=== PATIENT | female | born 1965 | race Hispanic/Latino ===

== ENCOUNTER 2017-12-08 13:21 | Inpatient (IN) | payer BC ==
[~2017-12-08] VITALS: Ht 165.1 cm; Wt 74.8 kg
--- OUTSIDE RECORDS SUMMARY | 2017-12-08 13:23 | XMS REPORT | Summary of Care ---
Author Author Olivia Huang M.A. Unknown Address Unknown Phone Unavailable Care Team Providers Care Fiscal Services Manager Name Role Phone WILSON CARTER M.D. Unavailable Unavailable KELECHI YOUSSEF, ABHISHEK Timmons Unavailable Unavailable Unavailable Unavailable Functional Status Name Dates Details Functional status health issues are not documented Status: Name Dates Details Cognitive status health issues are not documented Status: Problems Name Dates Details Joint pain of lower extremity (719.48, M25.50) Status: Active Colon cancer screening (V76.51, Z12.11) Status: Active Abdominal pain (789.00, R10.9) Status: Active Abnormal LFTs (790.6, R94.5) Status: Active Bilateral knee pain (719.46, M25.561) Status: Active Primary localized osteoarthritis of left knee (715.16, M17.12) Status: Active Limb pain (729.5, M79.609) Status: Active GERD (gastroesophageal reflux disease) (530.81, K21.9) Status: Active Status post total knee replacement using cement, right (V43.65, Z96.651) Status: Active Aftercare following right knee joint replacement surgery (V54.81, Z47.1) Status: Active Primary localized osteoarthritis of right knee (715.16, M17.11) Status: Active Medications Name Dates Details Not Currently on Medications R.N. Active Dicyclomine HCl - 10 MG Oral Capsule TAKE 1 CAPSULE 4 TIMES DAILY * Refills: 0 R.N. Active OrthoVisc 30 MG/2ML Intra-articular Solution Prefilled Syringe INJECT ONE PRE-FILLED SYRINGE INTRA-ARTICULARLY INTO RIGHT KNEE WEEKLY FOR THREE WEEKS. * Quantity: 3 Refills: 1 WILSON CARTER M.D. * Start : 24-Jan-2017 Active 2 ML Syringe Lidocaine 5 % External Ointment APPLY TO AFFECTED AREAS DIRECTED. * Quantity: 240 Refills: 0 R.N. * Start : 03-Sep-2017 Active Celecoxib 200 MG Oral Capsule TAKE 1 CAPSULE BY MOUTH TWICE DAILY THE DAY BEFORE SURGERY, AND 1 CAPSULE THE MORNING OF SURGERY * Quantity: 3 Refills: 0 MENDOZA-VALERIE Franklin.Baldo., WILSON * Start : 10-Oct-2017 Active Promethazine HCl - 25 MG Oral Tablet TAKE 1 TABLET EVERY 4 TO 6 HOURS NEEDED FOR NAUSEA. * Quantity: 20 Refills: 0 MENDOZA-VALERIE M.D., WILSON * Start : 21-Oct-2017 Active Manhattan 10-325 MG Oral Tablet One every 3 hrs as needed for pain. * Quantity: 80 Refills: 0 MENDOZA-VALERIE M.Baldo., WILSON * Start : 03-Nov-2017 Active Allergies and Adverse Reactions Name Dates Details No Known Drug Allergies (Allergy) Status: Active Past Medical History Name Dates Details History of arthritis (V13.4, Z87.39) Status: Resolved History of back pain (V13.59, Z87.39) Status: Resolved History of Gallbladder disorder (575.9, K82.9) Status: Resolved History of kidney stones (V13.01, Z87.442) Status: Resolved Procedures Procedure Dates Details History of Gastrectomy Sleeve Laparoscopic Completed History of knee replacement Completed Immunization Name Dates Details Immunizations not documented Family History Name Dates Details Family history of diabetes mellitus (V18.0, Z83.3) Status: Active Name Dates Details Family history of Ovarian cancer (183.0, C56.9) Status: Active Name Dates Details Family history of Parkinson disease, symptomatic (332.0, G20) Status: Active Name Dates Details Family history of hypertension (V17.49, Z82.49) Status: Active Family history of cardiac disorder (V17.49, Z82.49) Status: Active Social History Name Dates Details - Status: Name Dates Details Former smoker Vital Signs Date Test Result Details [id number]-[id number]:52 BP Systolic 168 mm[Hg] Status: Comments: Location: RUE; Position: Sitting BP Diastolic 99 mm[Hg] Status: Comments: Location: RUE; Position: Sitting Height 65 in Status: Heart Rate 67 /min Status: Comments: Location: R Radial; Results Date Description Value Details [id number]-[id number] [U] XRAY KNEE 3 VWS RIGHT 32633 XR KNEE 3 VWS RIGHT Images acquired, not reported on this accession number. Plan of Care Name Dates Details Planned Observations Planned Goals not documented Planned Encounters Appointment; WILSON CARTER M.D. On: 08-Dec-2017 16:15 Instructions Name Dates Details Instructions not documented Encounters Appointment; KLARISSA SUN M.D. Encounter Diagnosis: Problem not documented On: 22-Apr-2016 13:00 Appointment; KLARISSA SUN M.D. Encounter Diagnosis: Problem not documented On: 24-May-2016 9:00 Appointment; KLARISSA SUN M.D. Encounter Diagnosis: Problem not documented On: 24-Jun-2016 9:15 Appointment; KLARISSA SUN M.D. Encounter Diagnosis: Problem not documented On: 22-Aug-2016 14:30 Appointment; ROBI GUTIERREZ M.D. Encounter Diagnosis: Problem not documented On: 29-Aug-2016 10:00 Appointment; WILSON CARTER M.D. Encounter Diagnosis: Problem not documented On: 20-Jan-2017 13:45 Appointment; STEVEN BRAGG NP Encounter Diagnosis: Problem not documented On: 05-Feb-2017 8:00 Appointment; STEVEN BRAGG NP Encounter Diagnosis: Problem not documented On: 12-Feb-2017 16:00 Appointment; STEVEN BRAGG NP Encounter Diagnosis: Problem not documented On: 19-Feb-2017 15:30 Appointment; WILSON CARTER M.D. Encounter Diagnosis: Problem not documented On: 15-Aug-2017 7:30 Appointment; INDERJIT GOULD M.D. Encounter Diagnosis: Problem not documented On: 08-Oct-2017 13:00 Appointment; WILSON CARTER M.D. Encounter Diagnosis: Problem not documented On: 16-Oct-2017 7:00 Appointment; WILSON CARTER M.D. Encounter Diagnosis: Problem not documented On: 27-Oct-2017 14:00
[2017-12-08] MEDS ORDERED: LIDOCAINE VISC 2% SOLN 15 ML UDC PO ONE (14:00)
[2017-12-08] MEDS ORDERED: BELLADONNA ALK/PHENOBARBITAL 5 ML UDC PO ONE (14:00)
[2017-12-08] MEDS ORDERED: MAGNESIUM/ALUMINUM/SIMETHICONE 30 ML UDC PO ONE (14:00)
[2017-12-08] MEDS ORDERED: ONDANSETRON HCL 4 MG ORAL DISINTEGRATING TAB SL ONE (14:00)
[2017-12-08] MEDS ORDERED: SODIUM CHLORIDE 0.9% 1000ML 1,000 ML ONE (14:45)
[2017-12-08] MEDS ORDERED: MORPHINE SULFATE 4 MG/ML SYR IV ONE (14:45)
[2017-12-08] MEDS ORDERED: IOPAMIDOL 300MG/ML 100 ML INFUS..BTL IV ONE (15:30)
[2017-12-08] MEDS ORDERED: D5.45%NS/KCL 20MEQ 1,000 ML IV SCH ×2 (17:08→23:00)
[2017-12-08] MEDS ORDERED: MORPHINE SULFATE 2 MG/ML SYR IV PRN (17:15)
[2017-12-08] MEDS ORDERED: ONDANSETRON HCL INJ 2 MG/ML VIAL IV PRN ×2 (17:15→23:00)
[2017-12-08] MEDS ORDERED: PIPER-TAZ 3.375 GM 50 ML IV SCH (18:00)
[2017-12-08] MEDS ORDERED: PIPER-TAZ 3.375 GM 3.375 GM/100 ML BAG IV SCH (22:00)
--- OUTSIDE RECORDS SUMMARY | 2017-12-08 22:22 | XMS REPORT | Continuity of Care Document ---
Author Author [facility] Organization [facility] Address [address] [place] [address] Phone Unavailable Care Team Providers Care Quality Control Head Name Role Phone NONSTAFF PCP Unavailable Insurance Providers Guarantor Cassandra Kent Address [address] [place] [address] Email [facility] Policy Number [id number] Subscriber's Name Cassandra Kent Relationship 18 Self / Same As Patient Advance Directives Directive Response Recorded Date/Time Does the patient have an advance directive? No 12/08/17 1:48pm Do you have a Directive to Physician? No 12/08/17 1:48pm Do you have a Medical Power of Taker Out? No 12/08/17 1:48pm Do you have an out of hospital Do Not Resuscitate Order? No 12/08/17 1:48pm Do you have any special needs we should be aware of? No 12/08/17 1:48pm Do you have a support person here with you today? Yes 12/08/17 1:48pm Did patient receive Notice of Privacy Practices? Yes 12/08/17 1:48pm Did patient receive patient rights and responsibilities? Yes 12/08/17 1:48pm Problems Medical Problem Onset Date Status Acute pancreatitis Unknown Medications No medication information available. Social History Smoking Status Start Date Stop Date Former smoker Hospital Discharge Instructions No hospital discharge instruction information available. Plan of Care Discharge Date 12/08/17 10:10pm Disposition ADMITTED Condition at Discharge Stable Forms Provided Work/School Excuse Prescriptions See Medication Section Functional Status No functional status information available. Allergies, Adverse Reactions, Alerts No known allergies. Immunizations No immunization information available. Vital Signs Acute Vital Signs Vital Response Date/Time Temperature (Fahrenheit) 98.0 degrees F (97.6 - 99.5) 12/08/2017 10:04pm Pulse Pulse Rate (adult) 72 bpm (60 - 90) 12/08/2017 10:04pm Respiratory Rate 16 bpm (12 - 24) 12/08/2017 10:04pm Blood Pressure 135/72 mm Hg 12/08/2017 10:04pm Height 5 ft 5 in 12/08/2017 1:35pm Weight 165 lb 12/08/2017 1:35pm Body Mass Index 27.5 kg/m^2 12/08/2017 1:35pm Results Laboratory Results Test Name Result Units Flags Reference Collection Date/Time Result Date/ Time Comments Lipase 1547 U/L H 8-78 12/08/2017 3:34pm 12/08/2017 4:25pm Procedures No procedure information available. Encounters Encounter Location Arrival/Admit Date Discharge/Depart Date Attending Provider Departed Emergency Room [facility] 12/08/17 1:21pm 10:10pm CARLOS CHUNG MD
[2017-12-08 22:30] VITALS: BP 142/67
[2017-12-09] VITALS (8 sets, daily range): BP systolic 121–141; BP diastolic 58–72
[2017-12-09] MEDS: PIPER-TAZ 3.375 GM 50 ML IV SCH ×3 (01:30→17:44)
--- NOTE | 2017-12-09 06:37 | History and Physical ---
PRIMARY CARE PHYSICIAN: Dr. Contreras CHIEF COMPLAINT: Abdominal pain. HISTORY OF PRESENT ILLNESS: A 52-year-old woman with a history of Helicobacter pylori diagnosed about a week ago and started on treatment, now developing severe abdominal pain. She says that the pain has been ongoing for about 5 days. She went to 2 urgent cares, and told she had pancreatitis. Planned to see her primary care doctor tomorrow, but due to worsening symptoms went to urgent care yesterday, and had white cells greater than 30,000. She was admitted to the hospital for further care and management. She has some nausea, but no vomiting. Denies any diarrhea. PAST MEDICAL HISTORY: Helicobacter pylori diagnosed 1 week ago, obesity, status post gastric sleeve 2 years ago, cholelithiasis. PAST SURGICAL HISTORY: Gastric sleeve 2 years ago, right knee surgery 8 weeks ago. ALLERGIES: PER ELECTRONIC MEDICAL RECORDS. FAMILY HISTORY/SOCIAL HISTORY: Patient is . She has 2 children. No alcohol, illicits or cigarettes. MEDICATIONS: Per electronic medical record. REVIEW OF SYSTEMS: Denies any dizziness or chest pain. PHYSICAL EXAMINATION VITAL SIGNS: Have been reviewed. GENERAL: A tired-appearing woman resting in bed. HEENT: Anicteric. Pupils respond to light. No oral lesions. CARDIOVASCULAR: Normal S1 and S2. LUNGS: Moderate breath sounds. ABDOMEN: Soft and nondistended. She has tenderness in the midabdomen. No rebound or guarding. EXTREMITIES: No edema or calf tenderness. NEUROLOGICAL: Alert and oriented times 3. Moving all extremities. SKIN: Dry. PSYCHIATRIC: Normal affect. LABS: Reviewed. MEDICATIONS: Reviewed. ASSESSMENT AND PLAN: This is a 52-year-old woman with: 1. Acute pancreatitis: Will continue intravenous fluids. Will increase to 200 mL an hour and follow up lipase level. 2. Acute transaminitis: Will obtain gallbladder ultrasound to rule out cholelithiasis. May benefit from cholecystectomy. 3. Abdominal pain: Will treat with p.r.n. medications. 4. Recent Helicobacter pylori infection: Unclear as to whether the patient completed therapy. In the meantime, will continue on Zosyn at this time. 5. Dehydration: Will rehydrate the patient with intravenous fluids. 6. Prophylaxis: Will use sequential compression devices and will use Pepcid. 7. Disposition: Monitor closely. Follow up labs. Job#: [id number] SANTIAGO
[2017-12-09] MEDS: SODIUM CHLORIDE 0.9% 1000ML 1,000 ML IV SCH ×4 (06:57→21:17)
[2017-12-09 07:22] LABS: BASOPHILS % 0.3 % (0.0-1.0); EOSINOPHILS # (AUTO) 0.1 (0.0-0.4); EOSINOPHILS % 1.9 % (0.0-6.0); HEMATOCRIT 33.4 % (34.2-44.1); LYMPHOCYTES % 53.2 % (18.0-39.1); MEAN CORPUSCULAR HEMOGLOBIN 30.8 pg (28-32); MEAN CORPUSCULAR HGB CONC 32.9 g/dL (31-35); MEAN CORPUSCULAR VOLUME 93.6 fL (81-99); MONOCYTES # (AUTO) 0.2 (0.2-0.8); MONOCYTES % 6.3 % (4.4-11.3); NEUTROPHILS # (AUTO) 1.5 (2.1-6.9); NEUTROPHILS % 38.3 % (38.7-80.0); PLATELET COUNT 189 x10e3/uL (140-360); RED BLOOD COUNT 3.57 x10e6/uL (3.6-5.1); RED CELL DISTRIBUTION WIDTH 12.7 % (11.7-14.4)
[2017-12-09 07:44] LABS: ALANINE AMINOTRANSFERASE 101 IU/L (0-55); ALBUMIN 3.4 g/dL (3.5-5.0); ALBUMIN/GLOBULIN RATIO 1.3 (0.8-2.0); ALKALINE PHOSPHATASE 83 IU/L (40-150); AMYLASE 146 U/L (25-125); BLOOD UREA NITROGEN 8 mg/dL (7-26); BUN/CREATININE RATIO 11 (6-25); CALCIUM 8.7 mg/dL (8.4-10.2); CARBON DIOXIDE 30 mmol/L (22-29); CHLORIDE 106 mmol/L (98-107); CREATININE, SERUM 0.72 mg/dL (0.57-1.11); EST GLOMERULAR FILTRATION RATE > 60 ML/MIN (60-); GLUCOSE 102 mg/dL (74-118); LIPASE 95 U/L (8-78); SODIUM 140 mmol/L (136-145)
[2017-12-09] MEDS: FAMOTIDINE 20 MG/2 ML VIAL IV SCH ×2 (09:00→17:00)
--- NOTE | 2017-12-09 12:09 | Diagnostic Imaging Report ---
PROCEDURE:US GALLBLADDER COMPARISON:None. INDICATIONS:R/O Gallstones, Acute Pancreatitis TECHNIQUE: Rivera scale color Doppler ultrasound gallbladder FINDINGS: Multiple calcified subcentimeter gallstones. Gallbladder wall thickness 3 mm. No pericholecystic fluid. No sonographic Loza's sign. Common bile duct diameter 3 mm. Imaged portions of the abdominal aorta, inferior vena cava, pancreas, liver and right kidney are normal. CONCLUSION: Cholelithiasis. No sonographic evidence of choledocholithiasis. Dictated by: Jorje Valencia M.D. on 12/09/2017 at 12:10 Electronically approved by: Jorje Valencia M.D. on 12/09/2017 at 12:10
[2017-12-10] VITALS (7 sets, daily range): BP systolic 116–154; BP diastolic 58–81
[2017-12-10] MEDS: MORPHINE SULFATE 2 MG/ML SYR IV PRN ×2 (00:30→23:45)
[2017-12-10] MEDS: PIPER-TAZ 3.375 GM 50 ML IV SCH ×3 (01:30→18:00)
[2017-12-10] MEDS: SODIUM CHLORIDE 0.9% 1000ML 1,000 ML IV SCH ×5 (02:15→22:30)
[2017-12-10 07:31] LABS: BASOPHILS % 0.2 % (0.0-1.0); EOSINOPHILS # (AUTO) 0.1 (0.0-0.4); EOSINOPHILS % 1.3 % (0.0-6.0); HEMATOCRIT 39.1 % (34.2-44.1); HEMOGLOBIN 12.9 g/dL (12.0-16.0); LYMPHOCYTES # (AUTO) 3.3 (1.0-3.2); LYMPHOCYTES % 50.9 % (18.0-39.1); MEAN CORPUSCULAR HEMOGLOBIN 30.5 pg (28-32); MEAN CORPUSCULAR VOLUME 92.4 fL (81-99); MONOCYTES # (AUTO) 0.3 (0.2-0.8); MONOCYTES % 5.3 % (4.4-11.3); NEUTROPHILS # (AUTO) 2.7 (2.1-6.9); NEUTROPHILS % 42.3 % (38.7-80.0); PLATELET COUNT 228 x10e3/uL (140-360); RED BLOOD COUNT 4.23 x10e6/uL (3.6-5.1); RED CELL DISTRIBUTION WIDTH 12.4 % (11.7-14.4)
[2017-12-10 07:50] LABS: BLOOD UREA NITROGEN 7 mg/dL (7-26); BUN/CREATININE RATIO 10 (6-25); CALCIUM 9.3 mg/dL (8.4-10.2); CARBON DIOXIDE 25 mmol/L (22-29); CHLORIDE 105 mmol/L (98-107); CREATININE, SERUM 0.68 mg/dL (0.57-1.11); EST GLOMERULAR FILTRATION RATE > 60 ML/MIN (60-); GLUCOSE 66 mg/dL (74-118); LIPASE 17 U/L (8-78); SODIUM 140 mmol/L (136-145)
--- NOTE | 2017-12-10 08:07 | Progress Note ---
DATE: December 10, 2017 TIME: 7:30 a.m. OVERNIGHT: Feeling a little better. REVIEW OF SYSTEMS: Denies any dizziness or chest pain. Less abdominal pain. PHYSICAL EXAMINATION VITAL SIGNS: Reviewed. GENERAL: A tired-appearing woman resting in bed. HEENT: Anicteric. CARDIOVASCULAR: Normal S1 and S2. LUNGS: Moderate breath sounds. ABDOMEN: Soft and nondistended. Mild tenderness in the epigastrium. EXTREMITIES: No edema. SKIN: Dry. PSYCHIATRIC: Normal affect. LABS: Reviewed. MEDICATIONS: Reviewed. ASSESSMENT: A 52-year-old woman with: 1. Acute pancreatitis. 2. Acute transaminitis. 3. Abdominal pain. 4. Recent history of Helicobacter pylori. 5. Dehydration. 6. Cholelithiasis seen on ultrasound imaging. PLAN 1. Start clear liquid diet. 2. Consider cholecystectomy. This could be done electively outpatient. 3. Monitor lipase level. 4. Remain hospitalized today. Reassess tomorrow and obtain labs. Job#: [id number] SANTIAGO
[2017-12-10] MEDS: FAMOTIDINE 20 MG/2 ML VIAL IV SCH ×2 (09:00→17:00)
[2017-12-11] VITALS (7 sets, daily range): BP systolic 124–161; BP diastolic 59–85
[2017-12-11] MEDS: PIPER-TAZ 3.375 GM 50 ML IV SCH ×3 (02:00→16:51)
[2017-12-11] MEDS: SODIUM CHLORIDE 0.9% 1000ML 1,000 ML IV SCH ×3 (03:59→16:52)
--- NOTE | 2017-12-11 06:59 | Consultation ---
DATE OF CONSULTATION: December 11, 2017 Patient is a 52-year-old female who presents with complaints of epigastric abdominal pain. Said she has had pain for about 5 days. She was admitted to the hospital, and was found have elevated lipase, as well as gallstones. Lipase is now normal. She says her pain is much better. She has had similar pains off and on for a long time she says, but never this severe. There are no symptoms of jaundice. PAST MEDICAL HISTORY: Significant for H. pylori, which has been treated. She has had gastric sleeve resection for obesity about 2 years ago and right knee replacement surgery 8 weeks ago. ALLERGIES: SHE HAS NO KNOWN ALLERGIES. HOME MEDICATIONS: There were no home medications. FAMILY HISTORY: Noncontributory. SOCIAL HISTORY: Patient does not smoke cigarettes or drink alcohol. REVIEW OF SYSTEMS: As stated above. She has had no fever. She has had weight loss due to the gastric sleeve. PHYSICAL EXAMINATION GENERAL: The patient is awake, alert and in no distress. VITAL SIGNS: Normal. HEENT: Reveals no scleral icterus. NECK: Has no masses. LUNGS: Equal breath sounds are clear bilaterally. CARDIAC: Regular rate and rhythm with no murmur. ABDOMEN: Soft. There is slight epigastric tenderness. There is no mass. There is no distension. There are no signs of peritonitis. EXTREMITIES: No edema. LAB TESTS: White blood cell count is normal. Hemoglobin and hematocrit are normal. Chemistries and liver function tests were normal. Lipase was over 1500 on admission, but is normal now. ASSESSMENT: This is a 52-year-old female with gallstone pancreatitis. The pancreatitis has now resolved. She likely will benefit from cholecystectomy. Plan to schedule for today. Procedure was explained to the patient, including risks, benefits and alternatives. She understands the procedure. She has had the opportunity to ask questions. She is aware of the possible need for open surgery. Thank you for asking me to see Ms. Kent. Job#: [id number] SANTIAGO
[2017-12-11] MEDS: FAMOTIDINE 20 MG/2 ML VIAL IV SCH ×2 (09:31→16:51)
[2017-12-11] MEDS ORDERED: BUPIVACAINE 0.5%/EPI 30 ML SDV INJ ONE (12:33)
[2017-12-11] MEDS ORDERED: BUPIVACAINE HCL 0.5% INJ 30 ML VIAL INJ ONE (12:34)
[2017-12-11] MEDS ORDERED: SODIUM CHLORIDE 0.9% 1000ML 1,000 ML IV SCH (13:17)
[2017-12-11] MEDS ORDERED: HYDROMORPHONE 1MG/1ML INJ ONE (13:26)
[2017-12-11] MEDS ORDERED: ONDANSETRON HCL INJ 2 MG/ML VIAL IV PRN (13:30)
[2017-12-11] MEDS ORDERED: HYDROCODONE/APAP 5MG-325MG TAB PO PRN (13:30)
[2017-12-11] MEDS ORDERED: MORPHINE SULFATE 4 MG/ML SYR IV PRN (13:30)
[2017-12-11] MEDS ORDERED: MIDAZOLAM HCL 2 MG/2 ML VIAL ONE ×2 (13:31→18:51)
[2017-12-11] MEDS ORDERED: MORPHINE SULFATE 2 MG/ML SYR ONE (13:58)
[2017-12-11] MEDS ORDERED: KETOROLAC TROMETHAMINE 30 MG/ML VIAL ONE (14:17)
[2017-12-11] MEDS ORDERED: ACETAMINOPHEN 1000 MG/100 ML 100 ML IV ONE (14:44)
--- NOTE | 2017-12-11 15:17 | Operative Report ---
DATE OF PROCEDURE: December 11, 2017 PREOPERATIVE DIAGNOSES 1. Acute pancreatitis. 2. Cholelithiasis. POSTOPERATIVE DIAGNOSES 1. Acute pancreatitis. 2. Cholelithiasis. PROCEDURES 1. Diagnostic laparoscopy. 2. Laparoscopic cholecystectomy. ELIGIBILITY MANAGER: None. ANESTHESIA: General endotracheal. INDICATIONS AND FINDINGS: Patient is a 52-year-old female admitted to the hospital with complaint of abdominal pain. She had similar pains in the past. Workup revealed pancreatitis as well as gallstones. Pancreatitis resolved. At surgery, she was found to have multiple small stones in the gallbladder. Cystic duct was about 3 mm in diameter. Common bile duct was about 6 mm in diameter. There were no changes of pancreatitis. The liver, stomach and lower abdomen all appeared normal. TECHNIQUE: After adequate general endotracheal anesthesia, with the patient in the supine position, the abdomen was prepped and draped in sterile fashion with Thad solution. Skin in the umbilicus was infiltrated with 0.5% Marcaine. Incision was made in the umbilicus. Abdominal wall was elevated, and a Veress needle was introduced. Pneumoperitoneum was then created. A 10-mm trocar and cannula were then passed through the umbilical wound. Laparoscopic camera was introduced. Initial laparoscopy revealed liver, stomach, lower abdomen all appeared normal. There were no changes of pancreatitis. Gallbladder had some adhesions over it. Otherwise, there was no obvious inflammation. A 10-mm trocar and cannula were placed in the epigastrium, and two 5-mm trocars and cannulas were placed in the right upper quadrant. These were placed under direct vision. Fundus of the gallbladder was grasped and retracted superiorly. Adhesions were involving the omentum. These were lysed, staying close to the gallbladder. The neck of the gallbladder was grasped and retracted laterally. Peritoneum over the neck of the gallbladder was incised. The gallbladder and cystic duct junction was dissected free. Cystic artery was also dissected free. Cystic artery was divided between Hemoclips close to the gallbladder. Cystic duct was milked back towards the gallbladder and then divided between Hemoclips with 3 clips being left on the common bile duct side. There was a posterior branch of the cystic artery which was also divided between Hemoclips. The gallbladder was dissected free from the liver using scissors and electrocautery. Once it was entirely free, it was placed into an Endo pouch and brought out through the epigastric cannula. It contained multiple small stones. Gallbladder bed was inspected for hemostasis, which was seen to be adequate. It was irrigated with saline. All fluid aspirated and inspected once again for hemostasis, which was seen to be adequate. Instruments and cannulas were then removed. Pneumoperitoneum was evacuated. Wounds were then closed. Fascia in the umbilical and epigastric wounds closed with #0 Vicryl. Skin to all wounds closed with alvaro. Sterile dressings applied to each wound. Patient tolerated the procedure well. Estimated blood loss was 10 mL. There were no complications. All counts were correct. Patient was taken to the recovery room in satisfactory condition. Job#: [id number]
[2017-12-11] MEDS ORDERED: DEXAMETHASONE SOD PHOS INJ 4 MG/ML VIAL ONE (18:45)
[2017-12-11] MEDS ORDERED: NEOSTIGMINE 5 MG/5ML SYR ONE (18:45)
[2017-12-11] MEDS ORDERED: DESFLURANE 240 ML BTL INH ONE (18:45)
[2017-12-11] MEDS ORDERED: ROCURONIUM BROMIDE 10 MG/ML 5ML VIAL ONE (18:45)
[2017-12-11] MEDS ORDERED: PROPOFOL IV EMULSION 10 MG/ML 20 ML VIAL ONE (18:45)
[2017-12-11] MEDS ORDERED: ONDANSETRON HCL INJ 2 MG/ML VIAL ONE (18:45)
[2017-12-11] MEDS ORDERED: GLYCOPYRROLATE INJ 1MG/ 5 ML SYR ONE (18:45)
[2017-12-11] MEDS ORDERED: LIDOCAINE HCL 2% LOCAL INJ 5 ML SDV VIAL INJ ONE (18:45)
[2017-12-11] MEDS ORDERED: FENTANYL CITRATE/PF 100MCG/2 ML INJ ONE (18:51)
[2017-12-12] VITALS: BP 120/64
[2017-12-12] MEDS: PIPER-TAZ 3.375 GM 50 ML IV SCH ×2 (03:28→09:22)
[2017-12-12] MEDS: SODIUM CHLORIDE 0.9% 1000ML 1,000 ML IV SCH (03:47)
[2017-12-12 04:00] VITALS: BP 134/64
[2017-12-12 07:15] LABS: HEMATOCRIT 34.3 % (34.2-44.1); HEMOGLOBIN 11.5 g/dL (12.0-16.0)
[2017-12-12] MEDS ORDERED: SENNA LAXATIVE8.6 MG PO (07:49)
[2017-12-12] MEDS ORDERED: PEPCID20 MG PO ×2 (07:49→13:39)
[2017-12-12] MEDS ORDERED: ZOFRAN ODT4 MG PO ×2 (07:49→13:39)
[2017-12-12 07:50] LABS: ANION GAP 12.1 mmol/L (8-16); BLOOD UREA NITROGEN 6 mg/dL (7-26); BUN/CREATININE RATIO 10 (6-25); CALCIUM 9.1 mg/dL (8.4-10.2); CARBON DIOXIDE 24 mmol/L (22-29); CHLORIDE 105 mmol/L (98-107); CREATININE, SERUM 0.63 mg/dL (0.57-1.11); EST GLOMERULAR FILTRATION RATE > 60 ML/MIN (60-); GLUCOSE 98 mg/dL (74-118); LIPASE 8 U/L (8-78); POTASSIUM 4.1 mmol/L (3.5-5.1); SODIUM 137 mmol/L (136-145)
--- NOTE | 2017-12-12 08:07 | Progress Note ---
DATE: December 11, 2017 TIME: 6 a.m. OVERNIGHT: No events. REVIEW OF SYSTEMS: Denies any chest pain. PHYSICAL EXAMINATION VITAL SIGNS: Reviewed. GENERAL: A tired-appearing woman resting in bed. HEENT: Anicteric. CARDIOVASCULAR: Normal S1 and S2. LUNGS: Moderate breath sounds. ABDOMEN: Soft, nontender and nondistended. EXTREMITIES: No edema. SKIN: Dry. PSYCHIATRIC: Flat affect. LABS: Reviewed. MEDICATIONS: Reviewed. ASSESSMENT AND PLAN: A 52-year-old woman with: 1. Acute gallstone pancreatitis. 2. Acute transaminitis. 3. Abdominal pain. 4. Recent history of Helicobacter pylori. 5. Dehydration. 6. Cholelithiasis. PLAN 1. Cholecystectomy pending today. 2. Lipase has improved to 17 now. 3. Continue n.p.o. status. 4. Continue IV fluids. 5. Follow up. Job#: [id number] SANTIAGO
--- NOTE | 2017-12-12 08:10 | Discharge Summary ---
PRINCIPAL DIAGNOSES 1. Acute gallstone pancreatitis, status post laparoscopic cholecystectomy. 2. Acute transaminitis. 3. Abdominal pain. 4. Dehydration. 5. Cholelithiasis. SECONDARY DIAGNOSIS: Recent Helicobacter pylori infection. HISTORY OF PRESENT ILLNESS: This is a 52-year-old woman who developed abdominal pain. Refer to the H and P for further details. HOSPITAL COURSE: The patient was found to have acute gallstone pancreatitis, and underwent laparoscopic cholecystectomy. Received IV fluids and n.p.o. status. Did better. Elevated lipase resolved. The patient is doing better. Pain is controlled. She is currently appropriate for discharge and followup. DISCHARGE MEDICATIONS: Per electronic medical record. FOLLOWUP: Primary care doctor in 1 week. MARIELLA CASTILLO MD Job#: [id number] [place]
[2017-12-12] MEDS: FAMOTIDINE 20 MG/2 ML VIAL IV SCH (09:22)
[2017-12-12 10:47] VITALS: BP 134/64
[2017-12-12] MEDS ORDERED: SENNA LAXATIVE1 EACH PO (13:38)
[2017-12-12] MEDS ORDERED: ACETAMINOPHEN325 M1 PO (13:40)
== END 2017-12-12 15:13 | disposition home or self-care (01) | DRG 418 ==
LOC: FSED 13:21 → MED/SURG 22:19
PROVIDERS: ADMIT Internal Medicine; ATTEND Internal Medicine
PROC: 0FT44ZZ Resection of Gallbladder, Percutaneous Endoscopic Approach (ICD-10-PCS; principal; 2017-12-11 12:34)
DX: K85.10 Biliary acute pancreatitis without necrosis or infection (principal); K80.10 Calculus of gallbladder with chronic cholecystitis without obstruction; E86.0 Dehydration; Z87.891 Personal history of nicotine dependence; R74.0 Nonspecific elevation of levels of transaminase and lactic acid dehydrogenase [LDH]; Z98.84 Bariatric surgery status; Z96.651 Presence of right artificial knee joint; Z86.19 Personal history of other infectious and parasitic diseases
CPT/HCPCS: 36415; 74177; 76705; 80048; 80053; 80076; 81003; 81025; 82150; 83690; 85014; 85018; 85025; 88304; 93005; 96374; 96375; 99284; J1100; J1170; J1885; J2001; J2250; J2270; J2405; J2543; J7030; Q9967

== ENCOUNTER 2019-07-18 10:48 | Emergency (ER) | payer BC ==
[~2019-07-18] VITALS: Ht 160 cm; Wt 85.3 kg
[~2019-07-18 10:48] MED LIST: ACETAMINOPHEN325 M1 PO; PEPCID20 MG PO; SENNA LAXATIVE1 EACH PO; SENNA LAXATIVE8.6 MG PO; ZOFRAN ODT4 MG PO
--- OUTSIDE RECORDS SUMMARY | 2019-07-18 10:51 | XMS REPORT | Summary of Care ---
Author Author WILSON CARTER M.D. Unknown Address Unknown Phone Unavailable Care Team Providers Care Air Drill Operator Name Role Phone WILSON CARTER M.D. 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) Status: Active Aftercare following right knee joint replacement surgery (V54.81, Z47.1) Status: Active Primary localized osteoarthritis of right knee (715.16, M17.11) Status: Active Status post total knee replacement using cement, right (V43.65, Z96.651) Status: Active Medications Name Dates Details Dicyclomine HCl - 10 MG Oral Capsule TAKE 1 CAPSULE 4 TIMES DAILY Active Allergies and Adverse Reactions Name Dates Details No Known Drug Allergies (Allergy) Status: Active Past Medical History Name Dates Details History of arthritis (V13.4, Z87.39) Status: Resolved History of back pain (V13.59, Z87.39) Status: Resolved History of Gallbladder disorder (575.9, K82.9) Status: Resolved History of kidney stones (V13.01, Z87.442) Status: Resolved History of pancreatitis (V12.79, Z87.19) Status: Resolved History of Status post surgical manipulation of knee joint (V45.89, Z98.890) Status: Resolved Procedures Procedure Dates Details History of Gastrectomy Sleeve Laparoscopic Completed History of Knee replacement Completed History of Gallbladder surgery Completed Immunization Name Dates Details Immunizations not [...] smoker Vital Signs Date Test Result Details No Known Vitals to report Results Date Description Value Details 8-Ihd-[id number]:31 [U] XRAY KNEE 3 VWS RIGHT 96490 XR KNEE 3 VWS RIGHT Images acquired, not reported on this accession number. Plan of Care Name Dates Details Planned Observations Planned Goals not documented Interventions Provided Labs/Procedures/Imaging* [U] XRAY KNEE 3 VWS RIGHT [id number]; Done: 18 Nov 2018 Plan* Patient Education/Instructions: * Patient Education Provided * Reassurance * Counseling Provided - Discussed with Family/Patient * Family/Patient given opportunity to ask questions. * Family/Patient Verbalized Understanding. * Patient/Parent to call or return with any abnormal changes * Follow Up: * Return to the clinic in 1 year or as needed. * Pt will continue with HEP and f/u for re-evaluation in 1 year. Instructions Name Dates Details Instructions not documented Encounters Appointment; WILSON CARTER M.D. Encounter Diagnosis: Problem [...] Diagnosis: Problem not documented On: 27-Oct-2017 14:00 Appointment; WILSON CARTER M.D. Encounter Diagnosis: Problem not documented On: 15-Dec-2017 10:30 Appointment; WILSON CARTER M.D. Encounter Diagnosis: Problem not documented On: 14-Jan-2018 7:45 Appointment; WILSON CARTER M.D. Encounter Diagnosis: Problem not documented On: 20-Jan-2018 14:30 Appointment; STEVEN BRAGG NP Encounter Diagnosis: Problem not documented On: 28-Jan-2018 16:30 Appointment; WILSON CARTER M.D. Encounter Diagnosis: Problem not documented On: 04-Mar-2018 16:00 Appointment; WILSON CARTER M.D. Encounter Diagnosis: Problem not documented On: 27-May-2018 8:45 Appointment; WILSON CARTER M.D. Encounter Diagnosis: Problem not documented On: 18-Nov-2018 15:45
--- OUTSIDE RECORDS SUMMARY | 2019-07-18 10:51 | XMS REPORT ---
Author Author [facility] Organization [facility] Address Unknown Phone Unavailable Care Team Providers Care [employer]obile Accessories Salesperson Name Role Phone MARIELLA CASTILLO Unavailable Unavailable Payers Payer Name Policy Type Policy Number Effective Date Expiration Date Problems This patient has no known problems. Allergies, Adverse Reactions, Alerts This patient has no known allergies or adverse reactions. Medications This patient has no known medications. Results Test Description Test Time Test Comments Text Results Atomic Results Result Comments US GALLBLADDER [place] [address] Patient Name: CASSANDRA ULLOA MR #: [id number] : 1965 Age/Sex: 52/F Req #: [id number] [facility] Physician: MARIELLA CASTILLO MD Ordered by: MARIELLA CASTILLO MD Report #: [id number] Location: MED/SURG Room/Bed: [facility] Procedure: [id number] US/US GALLBLADDER Exam Date: 12/09/17 Exam Time: 1135 REPORT STATUS: Signed PROCEDURE: US GALLBLADDER COMPARISON: None. INDICATIONS: R/O Gallstones, Acute Pancreatitis TECHNIQUE: Rivera scale color Doppler ultrasound gallbladder FINDINGS: Multiple calcified subcentimeter gallstones. Gallbladder wall thickness 3 mm. No pericholecystic fluid. No sonographic Loza's sign. Common bile duct diameter 3 mm. Imaged portions of the abdominal aorta, inferior vena cava, pancreas, liver and right kidney are normal. CONCLUSION: Cholelithiasis. No sonographic evidence of choledocholithiasis. Dictated by: Jian Valencia M.D. on 12/09/2017 at 12:10 Electronically approved by: Jian Valencia M.D. on 12/09/2017 at 12:10 Dictated By: JIAN VALENCIA MD [id number] Transcribed By: ZAMZAM on 12/09/17 1210 COPY TO: MARIELLA CASTILLO MD
[2019-07-18] MEDS ORDERED: PYRIDIUM100 MG PO (11:30)
[2019-07-18] MEDS ORDERED: BACTRIM DS TAB1 EACH PO (11:30)
[2019-07-18] MEDS ORDERED: ONDANSETRON ODT8 MG PO (11:30)
[2019-07-18 12:43] VITALS: BP 113/75
--- NOTE | 2019-07-18 12:50 | Diagnostic Imaging Report ---
EXAM: CT Abdomen and Pelvis WITHOUT contrast INDICATION: ^[id number] ^[id number] COMPARISON: Gallbladder ultrasound 12/09/2017 TECHNIQUE: Abdomen and pelvis were scanned utilizing a multidetector helical scanner from the lung base to the pubic symphysis without administration of IV contrast. Absence of intravenous contrast decreases sensitivity for detection of focal lesions and vascular pathology. Coronal and sagittal reformations were obtained. Routine protocol was performed. IV CONTRAST: None. ORAL CONTRAST: Water RADIATION DOSE: Total DLP: 670.3 mGy*cm Estimated effective dose: (DLP x 0.015 x size factor) mSv COMPLICATIONS: None FINDINGS: LINES and TUBES: None. LOWER THORAX: Unremarkable HEPATOBILIARY: No focal hepatic lesions. No biliary ductal dilation. GALLBLADDER: Cholecystectomy. SPLEEN: No splenomegaly. PANCREAS: No focal masses or ductal dilatation. ADRENALS: No adrenal nodules KIDNEYS/URETERS: No hydronephrosis. No cystic or solid mass lesions. There are at least 5 nonobstructing calcified stones throughout the left kidney with the largest measuring 4 mm. 1 mm stone in the upper pole of the right kidney on series 3, image 60. No calcified stones are seen in the ureters. No perinephric fat stranding or fluid collections to suggest active infection. GI TRACT: Gastric sleeve postsurgical changes. No abnormal distention, wall thickening, or evidence of bowel obstruction. Appendix is normal. PELVIC ORGANS/BLADDER: Unremarkable. LYMPH NODES: No lymphadenopathy. VESSELS: Unremarkable. PERITONEUM / RETROPERITONEUM: No free air or fluid. BONES: Moderate degenerative changes at L5-S1 with associated minimal anterolisthesis of L5 over S1. No pars defect is visualized. SOFT TISSUES: Unremarkable. IMPRESSION: 1. Left greater than right nonobstructing nephrolithiasis. 2. No CT findings to suggest acute bilateral nephritis on limited evaluation. No hydronephrosis. 3. Cholecystectomy. 4. Gastric sleeve postsurgical changes. Signed by: Dr. Belkis Toledo M.D. on 07/18/2019 12:46 PM
== END 2019-07-18 13:00 | disposition home or self-care (01) ==
LOC: FSED 10:48
DX: R30.0 Dysuria (principal); N10 Acute pyelonephritis; N30.91 Cystitis, unspecified with hematuria; N12 Tubulo-interstitial nephritis, not specified as acute or chronic
CPT/HCPCS: 74176; 81003; 87086; 99283

== ENCOUNTER 2020-07-10 20:02 | Emergency (ER) | payer BC ==
[~2020-07-10] VITALS: Ht 160 cm; Wt 87.1 kg
[~2020-07-10 20:02] MED LIST changes: +BACTRIM DS TAB1 EACH PO; +ONDANSETRON ODT8 MG PO; +PYRIDIUM100 MG PO
[2020-07-10] MEDS ORDERED: KETOROLAC TROMETHAMINE 60 MG/2 ML VIAL IM ONE (22:00)
[2020-07-10] MEDS ORDERED: KETOROLAC TROMETHAMINE 60 MG/2 ML VIAL ONE (22:12)
[2020-07-10] MEDS ORDERED: PYRIDIUM200 MG PO (22:22)
[2020-07-10] MEDS ORDERED: NITROFURANTOIN100 MG PO (22:24)
[2020-07-10 22:47] VITALS: BP 142/77
--- NOTE | 2020-07-11 00:25 | Emergency Department Note ---
History of Present Illnes History of Present Illness Chief Complaint: Abdominal Complaints History of Present Illness This is a 54 year old female with dysuria since this afternoon. No fever or chills. No flank pain. No hematuria. Patient has history of UTIs and kidney stones. States this feels like UTI, not kidney stone. States when passed last stone imaging found multiple asymptomatic stones in kidney. Seeing urologist for evaluation for possible lithotripsy or other intervention and had KUB today. Has appointment with urologist tomorrow to go over results. Historian: Patient Arrival Mode: Car Vest Backer Required: No Onset (how long ago): hour(s) Location: suprapubic Quality: burning Radiation: Reports non-radiation Onset quality: unable to specify Duration (how long): hour(s) Timing of current episode: intermittent Progression: waxing and waning Chronicity: new Context: Denies recent illness, Denies trauma/injury Relieving factors: none Exacerbating factors: none Associated symptoms: Denies chest pain, Denies cough, Denies diaphoresis, Denies fever/chills, Denies headaches, Denies loss of appetite, Denies nausea/vomiting Past Medical/Family History Physician Review I have reviewed the patient's past medical and family history. Any updates have been documented here. Past Medical History Recent Fever: No Clinical Suspicion of Infectio: No New/Unexplained Change in Ment: No Past Medical History: Kidney Stones Other Medical History: pancreatitis Past Surgical History: Cholecysctectomy, Knee Replacement, Bariatric Surgery Other Surgery: GASTRIC SLEEVE RIGHT KNEE REPLACEMENT Social History Smoking Cessation: Current every day smoker Counseling Performed: No Alcohol Use: Occasional Any Illegal Drug Use: No Physically hurt or threatened: No Other Last Tetanus: UTD Any Pre-Existing Lines (PICC,: No Review of Systems Review of Systems Constitutional: Denies chills, Denies fever EENTM: Denies nose congestion, Denies throat pain Cardiovascular: Denies chest pain Respiratory: Denies cough, Denies dyspnea Gastrointestinal: Denies abdominal pain, Denies diarrhea Genitourinary: Reports as per HPI Musculoskeletal: Denies back pain Integumentary: Denies rash Neurological: Denies headache Endocrine: Denies increased urination Hematological/Lymphatic: Denies easy bruising Physical Exam Related Data Allergies: Coded Allergies: No Known Allergies (Unverified , 12/08/17) Triage Vital Signs Vital Signs Date Time Temp Pulse Resp B/P (MAP) Pulse Ox O2 Delivery O2 Flow Rate FiO2 07/10/20 20:02 98.9 77 18 153/86 99 Room Air Vital signs reviewed: Yes Physical Exam CONSTITUTIONAL Constitutional: Present well-developed, Present well-nourished HENT HENT: Present normocephalic, Present atraumatic, Present oropharynx clear/moist, Present nose normal HENT L/R: Present left ext ear normal, Present right ext ear normal EYES Eyes: Reports PERRL, Reports conjunctivae normal NECK Neck: Present ROM normal PULMONARY Pulmonary: Present effort normal, Present breath sounds normal CARDIOVASCULAR Cardiovascular: Present regular rhythm, Present heart sounds normal, Present capillary refill normal, Present normal rate GASTROINTESTINAL Abdominal: Present soft, Present bowel sounds normal, Present tender (suprapubic), Present other (no molina's, no psoas, no illiac, no rovsing's signs); Absent guarding, Absent mass, Absent rebound, Absent left CVA tenderness, Absent right CVA tenderness GENITOURINARY SKIN Skin: Present warm, Present dry; Absent rash MUSCULOSKELETAL Musculoskeletal: Absent edema NEUROLOGICAL Neurological: Present alert PSYCHOLOGICAL Psychological: Present mood/affect normal; Absent judgement normal Results Laboratory Lab results reviewed: Yes Laboratory comments UA: Neg Glu, jesus, ket, blood, protein, nit. Small Joselyn. Assessment & Plan Medical Decision Making MDM Differential dx includes, but not limited to AAA, appendicitis, SBO, UTI, Pylenephritis, kidney stone, PID, vaginitis, pancreatitis. Patient with pain with urinates. UA negative for nitrate with joselyn. afebrile. Will treat for UTI. Symptoms could be from kidney stone, patient has appointment with urologist tomorrow. Gave strict return precautions. BP elevated in ED. Instructed patient to measure BP when symptoms have resolved and F/U PCP for BP. Assessment & Plan Final Impression: (1) UTI (urinary tract infection) (2) Hypertension Depart Disposition: HOME, SELF-CARE Last Vital Signs Date Time Temp Pulse Resp B/P (MAP) Pulse Ox O2 Delivery O2 Flow Rate FiO2 07/10/20 20:02 98.9 77 18 153/86 99 Room Air Home Meds Active Scripts Nitrofurantoin Macrocrystal (NITROFURANTOIN) 100 Mg Capsule, 100 MG PO BID, #14 Prov:LATRICE JARQUIN MD 07/10/20 Phenazopyridine Hcl (PYRIDIUM) 200 Mg Tablet, 200 MG PO TIDWM, #10 TAB Prov:LATRICE JARQUIN MD 07/10/20 Phenazopyridine Hcl (PYRIDIUM) 100 Mg Tablet, 100 MG PO TID for 2 Days, #6 Prov:GALEN BRENNAN MD 07/18/19 Ondansetron (ONDANSETRON ODT) 8 Mg Tab.rapdis, 4 MG PO TID PRN for NAUSEA for 3 Days, #10 Prov:GALEN BRENNAN MD 07/18/19 Sulfamethoxazole/Trimethoprim (BACTRIM DS TABLET) 1 Each Tablet, 1 EACH PO BID for 7 Days, #14 Prov:GALEN BRENNAN MD 07/18/19 Reported Medications Acetaminophen (ACETAMINOPHEN) 325 Mg Tablet, 650 MG PO Q6H PRN for PAIN for 5 Days, TAB 12/12/17 Famotidine (PEPCID) 20 Mg Tablet, 20 MG PO BID, #60 TAB 12/12/17 Ondansetron (ZOFRAN ODT) 4 Mg Tab.rapdis, 4 MG PO Q4HR, TAB 12/12/17 Sennosides/Docusate Sodium (SENNA LAXATIVE TABLET) 1 Each Tablet, 1 TAB PO PRN PRN for CONSTIPATION 12/12/17 Medications in the ED Ketorolac Tromethamine 60 mg ONCE ONCE IM Last administered on 07/10/20at 22:08; Admin Dose 60 MG; Start 07/10/20 at 22:00; Stop 07/10/20 at 22:01; Status DC Ketorolac Tromethamine 60 mg STK-MED ONCE .ROUTE ; Start 07/10/20 at 22:12; Stop 07/10/20 at 22:06; Status DC LATRICE JARQUIN MD Jul 10, 2020 22:21
== END 2020-07-10 22:47 | disposition home or self-care (01) ==
LOC: FSED 20:02
DX: R30.0 Dysuria (principal); N39.0 Urinary tract infection, site not specified; R10.30 Lower abdominal pain, unspecified; I10 Essential (primary) hypertension; Z98.84 Bariatric surgery status
CPT/HCPCS: 99282; J1885

== ENCOUNTER 2021-09-29 17:15 | Emergency (ER) | payer BC ==
[~2021-09-29] VITALS: Ht 170.2 cm; Wt 158.8 kg
[~2021-09-29 17:15] MED LIST changes: +NITROFURANTOIN100 MG PO; +PYRIDIUM200 MG PO
[2021-09-29] MEDS ORDERED: ASPIRIN 81 MG CHEW TAB PO STA (17:32)
[2021-09-29] MEDS ORDERED: ASPIRIN 81 MG CHEW TAB ONE (18:17)
[2021-09-29] MEDS ORDERED: KETOROLAC TROMETHAMINE 30 MG/ML VIAL IV STA (18:27)
[2021-09-29] MEDS ORDERED: KETOROLAC TROMETHAMINE 60 MG/2 ML VIAL ONE (18:54)
[2021-09-29] MEDS ORDERED: KETOROLAC TROMETHAMINE 60 MG/2 ML VIAL IM ONE (19:00)
[2021-09-29 20:05] VITALS: BP 123/60
== END 2021-09-29 20:05 | disposition home or self-care (01) ==
LOC: FSED 17:19
DX: R07.9 Chest pain, unspecified (principal); R42 Dizziness and giddiness; Z96.651 Presence of right artificial knee joint; Z98.84 Bariatric surgery status
CPT/HCPCS: 71046; 80053; 82553; 84484; 85025; 93005; 99283; J1885

== ENCOUNTER 2024-09-22 20:01 | Inpatient (IN) | payer BC ==
[~2024-09-22] VITALS: Ht 162.6 cm; Wt 90.7 kg
[2024-09-22] MEDS ORDERED: ACETAMINOPHEN 325 MG TAB PO PRN (22:30)
[2024-09-22] MEDS: SODIUM CHLORIDE 0.45% 1,000 ML IV SCH (23:19)
[2024-09-22] MEDS ORDERED: IBUPROFEN800 MG PO (23:21)
[2024-09-22 23:40] VITALS: BP 155/87; PULSE 66; RESP 20; TEMP 98.9; O2SAT 98
[2024-09-22 23:45] VITALS: BP 155/87; PULSE 66; RESP 20; TEMP 98.9; O2SAT 98
[2024-09-23] VITALS (11 sets, daily range): BP systolic 94–155; BP diastolic 58–87; PULSE 60–74; RESP 16–20; TEMP 98–98.9; O2SAT 97–100
[2024-09-23 06:07] LABS: BASOPHILS % 0.3 % (0.0-1.0); EOSINOPHILS # (AUTO) 0.1 (0.0-0.4); EOSINOPHILS % 1.3 % (0.0-6.0); HEMATOCRIT 37.1 % (34.2-44.1); HEMOGLOBIN 11.9 g/dL (12.0-16.0); LYMPHOCYTES # (AUTO) 2.4 (1.0-3.2); LYMPHOCYTES % 34.6 % (18.0-39.1); MEAN CORPUSCULAR HEMOGLOBIN 30.7 pg (28-32); MEAN CORPUSCULAR HGB CONC 32.1 g/dL (31-35); MEAN CORPUSCULAR VOLUME 95.9 fL (81-99); MONOCYTES # (AUTO) 0.5 (0.2-0.8); MONOCYTES % 6.7 % (4.4-11.3); PLATELET COUNT 207 x10e3/uL (140-360); RED BLOOD COUNT 3.87 x10e6/uL (3.6-5.1); RED CELL DISTRIBUTION WIDTH 12.7 % (11.7-14.4); WHITE BLOOD COUNT 7.02 x10e3/uL (4.8-10.8)
[2024-09-23 06:42] LABS: ALBUMIN 3.2 g/dL (3.5-5.0); ALBUMIN/GLOBULIN RATIO 1.3 (0.8-2.0); ANION GAP 10.4 mmol/L (8-16); BILIRUBIN,TOTAL 0.4 mg/dL (0.2-1.2); CALCIUM 8.4 mg/dL (8.4-10.2); CREATININE, SERUM 0.66 mg/dL (0.57-1.11); TOTAL PROTEIN 5.6 g/dL (6.5-8.1)
[2024-09-23 06:45] LABS: POTASSIUM 3.4 mmol/L (3.5-5.1)
[2024-09-23] MEDS ORDERED: METOPROLOL TARTRATE INJ 1 MG/ML VIAL IV PRN (09:15)
[2024-09-23] MEDS ORDERED: ALBUTEROL/IPRATROPIUM 3 ML NEB NEB PRN (09:15)
[2024-09-23] MEDS ORDERED: SIMETHICONE 80 MG CHEW PO PRN (09:15)
[2024-09-23 09:37] LABS: CHOL/HDL RATIO 2.9 (3.0-3.6)
[2024-09-23] MEDS: ACETAMINOPHEN/CODEINE 300MG - 30MG TAB PO PRN (11:08)
[2024-09-23] MEDS: SENNOSIDES 8.6 MG TAB PO PRN (14:29)
[2024-09-23] MEDS: ONDANSETRON HCL INJ 2MG/ML 2ML 2 MG/ML VIAL IV PRN (14:29)
[2024-09-23] MEDS: Morphine 4mg INJECTION 4 MG/ML INJ IV PRN (14:29)
[2024-09-23] MEDS: FAMOTIDINE 20 MG TAB PO SCH (17:21)
[2024-09-23] MEDS ORDERED: MELATONIN 3 MG TAB PO PRN (21:00)
[2024-09-24] VITALS (9 sets, daily range): BP systolic 100–152; BP diastolic 57–70; PULSE 48–78; RESP 17–19; TEMP 97.5–98.9; O2SAT 96–100
[2024-09-24 06:11] LABS: BASOPHILS % 0.5 % (0.0-1.0); EOSINOPHILS # (AUTO) 0.1 (0.0-0.4); EOSINOPHILS % 1.8 % (0.0-6.0); HEMATOCRIT 39.5 % (34.2-44.1); HEMOGLOBIN 12.1 g/dL (12.0-16.0); LYMPHOCYTES # (AUTO) 1.9 (1.0-3.2); LYMPHOCYTES % 42.8 % (18.0-39.1); MEAN CORPUSCULAR HEMOGLOBIN 30.3 pg (28-32); MEAN CORPUSCULAR HGB CONC 30.6 g/dL (31-35); MONOCYTES # (AUTO) 0.3 (0.2-0.8); MONOCYTES % 6.5 % (4.4-11.3); NEUTROPHILS # (AUTO) 2.2 (2.1-6.9); NEUTROPHILS % 48.4 % (38.7-80.0); PLATELET COUNT 198 x10e3/uL (140-360); RED BLOOD COUNT 3.99 x10e6/uL (3.6-5.1); WHITE BLOOD COUNT 4.44 x10e3/uL (4.8-10.8)
[2024-09-24 06:46] LABS: ANION GAP 13.8 mmol/L (8-16); CALCIUM 8.5 mg/dL (8.4-10.2); CREATININE, SERUM 0.74 mg/dL (0.57-1.11); POTASSIUM 3.8 mmol/L (3.5-5.1)
[2024-09-24] MEDS ORDERED: FENTANYL CITRATE/PF 100MCG/2 ML INJ ONE (11:39)
[2024-09-24] MEDS ORDERED: PROPOFOL IV EMULSION 10 MG/ML 20 ML VIAL ONE (11:39)
[2024-09-24] MEDS ORDERED: SEVOFLURANE INHAL SOLN 250 ML PEN BTL ONE (11:39)
[2024-09-24] MEDS ORDERED: LIDOCAINE HCL 2% LOCAL INJ 5 ML SDV VIAL INJ ONE (11:39)
[2024-09-24] MEDS ORDERED: MIDAZOLAM HCL 2 MG/2 ML VIAL ONE (11:39)
[2024-09-24] MEDS: ACETAMINOPHEN/CODEINE 300MG - 30MG TAB PO PRN (13:29)
[2024-09-24] MEDS: PHENAZOPYRIDINE HCL 100 MG TAB PO PRN (13:29)
[2024-09-24] MEDS: PIPERACILLIN/TAZOBACTAM 3.375 GM VIAL ONE (18:18)
[2024-09-25] VITALS: BP 100/51; PULSE 54; RESP 18; TEMP 98.1; O2SAT 98
[2024-09-25 04:00] VITALS: BP 126/63; PULSE 58; RESP 18; TEMP 98; O2SAT 100
[2024-09-25 06:11] VITALS: PULSE 71; RESP 20; O2SAT 98
[2024-09-25 07:05] LABS: BASOPHILS % 0.1 % (0.0-1.0); HEMATOCRIT 36.6 % (34.2-44.1); HEMOGLOBIN 12.1 g/dL (12.0-16.0); LYMPHOCYTES # (AUTO) 1.2 (1.0-3.2); LYMPHOCYTES % 16.7 % (18.0-39.1); MEAN CORPUSCULAR HGB CONC 33.1 g/dL (31-35); MEAN CORPUSCULAR VOLUME 90.8 fL (81-99); MONOCYTES # (AUTO) 0.4 (0.2-0.8); MONOCYTES % 5.7 % (4.4-11.3); NEUTROPHILS # (AUTO) 5.5 (2.1-6.9); NEUTROPHILS % 77.2 % (38.7-80.0); PLATELET COUNT 215 x10e3/uL (140-360); RED BLOOD COUNT 4.03 x10e6/uL (3.6-5.1); RED CELL DISTRIBUTION WIDTH 12.5 % (11.7-14.4); WHITE BLOOD COUNT 7.07 x10e3/uL (4.8-10.8)
[2024-09-25 07:49] LABS: ANION GAP 12.6 mmol/L (8-16); CALCIUM 8.8 mg/dL (8.4-10.2); CREATININE, SERUM 0.74 mg/dL (0.57-1.11); POTASSIUM 3.6 mmol/L (3.5-5.1)
[2024-09-25 08:13] VITALS: BP 152/83; PULSE 50; RESP 18; TEMP 97.9; O2SAT 100
[2024-09-25] MEDS: SOLIFENACIN SUCCINATE 5 MG TAB PO SCH (08:50)
[2024-09-25 09:42] VITALS: BP 152/83; PULSE 50; RESP 18; TEMP 97.9; O2SAT 100
[2024-09-25] MEDS: DOCUSATE SODIUM 100 MG CAP PO SCH (10:00)
[2024-09-25 11:09] LABS: CALCIUM 8.6 mg/dL (8.7-10.3)
[2024-09-25 12:34] VITALS: BP 133/76; PULSE 53; RESP 18; TEMP 97.3; O2SAT 100
== END 2024-09-25 15:00 | disposition home or self-care (01) | DRG 660 ==
LOC: MED/SURG3 21:24
PROVIDERS: ADMIT Internal Medicine; ATTEND Internal Medicine
PROC: BT141ZZ Fluoroscopy of Kidneys, Ureters and Bladder using Low Osmolar Contrast (ICD-10-PCS; 2024-09-24)
PROC: 0UJH7ZZ Inspection of Vagina and Cul-de-sac, Via Natural or Artificial Opening (ICD-10-PCS; 2024-09-24)
PROC: 0TC18ZZ Extirpation of Matter from Left Kidney, Via Natural or Artificial Opening Endoscopic (ICD-10-PCS; principal; 2024-09-24 12:00)
PROC: 0T778DZ Dilation of Left Ureter with Intraluminal Device, Via Natural or Artificial Opening Endoscopic (ICD-10-PCS; 2024-09-24 12:00)
DX: N13.6 Pyonephrosis (principal); A04.9 Bacterial intestinal infection, unspecified; N81.2 Incomplete uterovaginal prolapse; N95.2 Postmenopausal atrophic vaginitis; N36.41 Hypermobility of urethra; N39.46 Mixed incontinence; R31.29 Other microscopic hematuria; K21.9 Gastro-esophageal reflux disease without esophagitis; E66.9 Obesity, unspecified; Z68.34 Body mass index [BMI] 34.0-34.9, adult; Z98.84 Bariatric surgery status
CPT/HCPCS: 36415; 74018; 74420; 80048; 80053; 80061; 83036; 83970; 84550; 85025; 87086; 88300; 94799; 99252; C1758; C2617; J2003; J2250; J2270; J2405; J2543

== ENCOUNTER → 2024-10-29 | Day surgery (SDC) | payer BC ==
[2024-10-28 14:38] LABS: BASOPHILS % 0.5 % (0.0-1.0); EOSINOPHILS # (AUTO) 0.1 (0.0-0.4); EOSINOPHILS % 1.7 % (0.0-6.0); HEMATOCRIT 39.2 % (34.2-44.1); HEMOGLOBIN 12.7 g/dL (12.0-16.0); LYMPHOCYTES # (AUTO) 2.4 (1.0-3.2); LYMPHOCYTES % 36.3 % (18.0-39.1); MEAN CORPUSCULAR HEMOGLOBIN 29.7 pg (28-32); MEAN CORPUSCULAR HGB CONC 32.4 g/dL (31-35); MEAN CORPUSCULAR VOLUME 91.8 fL (81-99); MONOCYTES # (AUTO) 0.4 (0.2-0.8); MONOCYTES % 6.2 % (4.4-11.3); NEUTROPHILS # (AUTO) 3.6 (2.1-6.9); NEUTROPHILS % 55.1 % (38.7-80.0); PLATELET COUNT 252 x10e3/uL (140-360); RED BLOOD COUNT 4.27 x10e6/uL (3.6-5.1); RED CELL DISTRIBUTION WIDTH 13.5 % (11.7-14.4)
[2024-10-28 15:03] LABS: ANION GAP 12.8 mmol/L (8-16); CREATININE, SERUM 0.79 mg/dL (0.57-1.11); POTASSIUM 3.8 mmol/L (3.5-5.1)
[~2024-10-29] MED LIST changes: +CLINDAMYCIN HC150 MG PO; +IBUPROFEN800 MG PO; +SEVOFLURANE INHAL SOLN 250 ML PEN BTL ONE
[2024-10-29] MEDS: GENTAMICIN 80MG/NS 100 ML 200 ML IV ONE (11:03)
[2024-10-29] MEDS: CEFTRIAXONE 1 GM VIAL ONE (11:03)
[2024-10-29] MEDS: LACTATED RINGER'S 1,000 ML ONE (11:03)
[2024-10-29] MEDS: KETOROLAC TROMETHAMINE 30 MG/ML VIAL ONE (11:58)
[2024-10-29 14:10] VITALS: TEMP 98.1
[2024-10-29 15:20] VITALS: BP 123/74; PULSE 60; RESP 18; O2SAT 99
== END | disposition home or self-care (01) ==
LOC: OR 09:30
PROVIDERS: ATTEND Urology
DX: N20.0 Calculus of kidney (principal); Z46.6 Encounter for fitting and adjustment of urinary device; N39.0 Urinary tract infection, site not specified; N39.46 Mixed incontinence; N81.10 Cystocele, unspecified; N81.6 Rectocele; N36.41 Hypermobility of urethra; N95.2 Postmenopausal atrophic vaginitis; K21.9 Gastro-esophageal reflux disease without esophagitis; Z01.810 Encounter for preprocedural cardiovascular examination; Z01.812 Encounter for preprocedural laboratory examination; Z01.818 Encounter for other preprocedural examination; Z68.34 Body mass index [BMI] 34.0-34.9, adult; Z87.891 Personal history of nicotine dependence
CPT/HCPCS: 36415; 52352; 74018; 74420; 80048; 84550; 85025; 87086; 88300; 93005; C1769; J0696; J1580; J1885; J7121